=== PATIENT | female | born 1990 | race African-American/Black ===

== ENCOUNTER → 2019-06-25 | Outpatient (REF) | payer OTHER ==
[2019-06-25 18:55] LABS: APPEARANCE, URINE CLOUDY (CLEAR); BACTERIA, URINE AUTO 1+ (NEGATIVE); BILIRUBIN, URINE AUTO NEGATIVE (NEGATIVE); BLOOD, URINE BLOOD 1+ (NEGATIVE); COLOR, URINE YELLOW (YELLOW); GLUCOSE, URINE (UA) AUTO NEGATIVE (NEGATIVE); KETONE, URINE AUTO NEGATIVE (NEGATIVE); LEUKOCYTE ESTERASE, URINE AUTO 3+ (NEGATIVE); NITRITE, URINE AUTO POSITIVE (NEGATIVE); PROTEIN, URINE AUTO 1+ mg/dL (NEGATIVE); RBC, URINE AUTO 8 /HPF (0-3); SQUAMOUS EPITHELIAL CELL UR AU 2 /HPF (0-6); UROBILINOGEN, URINE AUTO 0.2 mg/dL (0.0-2.0); WBC, URINE AUTO TNTC /HPF (0-3)
== END ==
LOC: M LAB REF 16:38
PROVIDERS: ATTEND Nurse Practitioner Women's Health
DX: N39.0 Urinary tract infection, site not specified (principal)

== ENCOUNTER → 2019-12-18 | Outpatient (REF) | payer OTHER | LOC: M LAB REF 09:35 | PROVIDERS: ATTEND Physician Assistant | DX: Z03.818 Encounter for observation for suspected exposure to other biological agents ruled out (principal); Z11.59 Encounter for screening for other viral diseases ==

== ENCOUNTER → 2019-12-21 | Outpatient (REF) | payer OTHER | LOC: M LAB REF 09:23 | PROVIDERS: ATTEND Physician Assistant | DX: Z11.59 Encounter for screening for other viral diseases (principal) ==

== ENCOUNTER 2021-08-11 16:59 | Emergency (ER) | payer OTHER ==
[~2021-08-11] VITALS: Ht 167.6 cm; Wt 113.6 kg
[2021-08-11] MEDS ORDERED: KETOROLAC 30 MG/ML 1ML VIAL IV ONE (17:40)
[2021-08-11] MEDS ORDERED: LIDOCAINE 5% (LIDODERM) PATCH TD ONE (17:40)
[2021-08-11] MEDS ORDERED: diazePAM 10MG/2ML SYRINGE (J3360 PER 5MG) IV ONE ×2 (17:40→19:45)
[2021-08-11 18:21] LABS: BASO # 0.1 10^3/uL (0.0-0.2); BASO % 0.5 % (0.0-1.0); EOS # 0.1 10^3/uL (0.0-0.5); EOS % 0.8 % (0.0-3.0); HEMATOCRIT 39.2 % (36.0-47.0); HEMOGLOBIN 13.1 g/dl (12.0-15.5); LYMPH # 1.7 10^3/uL (1.5-5.0); LYMPH % 16.8 % (24.0-44.0); MEAN CORPUSCULAR HEMOGLOBIN 29.2 pg (27.0-33.0); MEAN CORPUSCULAR HGB CONC 33.4 g/dl (32.0-36.5); MEAN CORPUSCULAR VOLUME 87.3 fl (80.0-96.0); MONO # 0.6 10^3/uL (0.0-0.8); MONO % 5.5 % (2.0-8.0); NEUTROPHILS # 7.7 10^3/uL (1.5-8.5); NEUTROPHILS % 76.1 % (36.0-66.0); PLATELET COUNT, AUTOMATED 262 10^3/uL (150-450); RED BLOOD COUNT 4.49 10^6/uL (4.00-5.40); WHITE BLOOD COUNT 10.1 10^3/uL (4.0-10.0)
[2021-08-11 18:44] LABS: CK-MB VALUE MASS < 1.0 NG/ML (<3.6); CPK CREATINE PHOSPHOKINASE 142 U/L (26-192)
[2021-08-11 18:54] LABS: ERYTHROCYTE SEDIMENTATION RATE 15 mm/hr (0-20)
[2021-08-11] MEDS ORDERED: ISOVUE-370 76% 100ML VIAL As Ordered ONE (19:49)
[2021-08-11] MEDS ORDERED: **NOTE PATIENT COMMENT** MISC XX SCH (21:00)
[2021-08-11] MEDS ORDERED: METH-1165 PO (21:09)
[2021-08-11] MEDS ORDERED: ASPE4PAD TOP (21:09)
[2021-08-11] MEDS ORDERED: NAPR-837 PO (21:09)
[2021-08-11 21:53] VITALS: BP 127/69
== END 2021-08-11 21:57 | disposition home or self-care (01) ==
LOC: M ED 16:59
DX: M54.6 Pain in thoracic spine (principal); M62.830 Muscle spasm of back; F17.210 Nicotine dependence, cigarettes, uncomplicated
CPT/HCPCS: 71046; 71275; 80047; 82550; 82553; 84702; 85025; 85379; 85652; 86140; 96374; 96375; 96376; 99284; J1885; J3360; Q9967